=== PATIENT | female | born 2000 | race Caucasian/White ===

== ENCOUNTER 2020-12-24 13:18 | Inpatient (IN) | payer OTHER ==
[~2020-12-24] VITALS: Ht 170.2 cm; Wt 119.8 kg
[2020-12-24] MEDS ORDERED: DexAMETHasone SOD PHOS 10MG/1ML VIAL INJ IV ONE (13:30)
[2020-12-24] MEDS ORDERED: cefTRIAXone 1GM/50ML D5W 50 ML IV ONE (13:30)
[2020-12-24 14:02] LABS: Basophils # (auto) 0 10 ^3/uL (0-0.2); Basophils % (auto) 0.3 % (0.0-2.0); Eosinophils # (auto) 0 10 ^3/uL (0-0.8); Eosinophils % (auto) 0.1 % (0.0-7.0); Hematocrit 42.1 % (36.0-46.0); Hemoglobin 14.2 g/dL (12.2-16.2); Lymphocytes # (auto) 0.7 10 ^3/uL (0.4-5.4); Lymphocytes % (auto) 9.8 % (10.0-50.0); Mean Corpuscular Hemoglobin 29.4 pg (28.0-32.0); Mean Corpuscular Hgb Conc. 33.7 g/dL (32.0-36.0); Mean Corpuscular Volume 87.2 fL (80.0-100.0); Monocytes # (auto) 0.2 10 ^3/uL (0-1.3); Monocytes % (auto) 2.7 % (0.0-12.0); Neutrophils % (auto) 87.1 % (37.0-80.0); Red Blood Cells 4.83 10^6/uL (4.0-5.20); Red Cell Distribution Width 13.5 % (11.8-14.3); White Blood Cell 6.9 10^3/uL (4.4-10.8)
[2020-12-24 14:28] LABS: Albumin 2.5 g/dL (3.4-5.0); Anion Gap 6 (5-15); Blood Urea Nitrogen 9 mg/dL (7-18); Calcium 8.2 mg/dL (8.5-10.1); Carbon Dioxide 25 mmol/L (21-32); Chloride 110 mmol/L (98-107); Glucose 146 mg/dL (74-106); Potassium 4.3 mmol/L (3.5-5.1); Sodium 141 mmol/L (136-145)
[2020-12-24 14:35] LABS: Alanine Aminotransferase 119 U/L (13-56); Alkaline Phosphatase 59 U/L (45-117); Aspartate Aminotransferase 75 U/L (15-37); BUN/Creatinine Ratio 20.9; Bilirubin, Total 0.4 mg/dL (0.2-1.0); GFR African American 241 mL/min; GFR Non-African American 199 mL/min; Total Protein 7.1 g/dL (6.4-8.2)
[2020-12-24] MEDS ORDERED: IOHEXOL 350 MG/ML 100ML IJ ONE (14:37)
[2020-12-24] MEDS ORDERED: diphenhdrAMINE HCL 50 MG/1 ML VL IV ONE (15:00)
[2020-12-24 19:14] LABS: Urine Bacteria FEW /hpf (None Seen); Urine Blood 2+ /uL (Negative); Urine Mucus FEW (None Seen); Urine WBC 2 /hpf (0 - 5)
[2020-12-24 19:16] LABS: Urine Specific Gravity 1.051 (1.001-1.035)
[2020-12-24] MEDS ORDERED: hydrALAZINE HCL 20 MG/ML VL IV PRN (20:30)
[2020-12-24] MEDS ORDERED: ACETAMINOPHEN 500 MG TAB PO PRN ×2 (20:30)
[2020-12-24] MEDS ORDERED: NITROGLYCERIN 0.4 MG SL TAB SL PRN (20:30)
[2020-12-24] MEDS ORDERED: MORPHINE SULF INJ 2 MG/ML SYRINGE 1ML IV PRN (20:30)
[2020-12-24] MEDS ORDERED: DOCUSATE CALCIUM 240 MG CAP PO PRN (20:30)
[2020-12-24] MEDS ORDERED: DEXTROSE (50%) 50ML SYRG IV PRN (21:00)
[2020-12-24] MEDS: AZITHROMYCIN 500MG/ 250ML 250 ML IV SCH (21:46)
[2020-12-24] MEDS: ONDANSETRON HCL 4 MG/2 ML VIAL IV PRN (23:19)
[2020-12-24] MEDS: ENOXAPARIN SOD 40 MG/0.4 ML SYRINGE SC SCH (23:19)
[2020-12-24] MEDS: MORPHINE SULF INJ 2 MG/ML SYRINGE 1ML IV PRN (23:20)
[2020-12-25] VITALS (8 sets, daily range): BP systolic 114–153; BP diastolic 70–90
[2020-12-25] MEDS: InsuLIN REG 1unit/0.01ml Soln (100units/ml) SC SCH ×6 (04:00→21:17)
[2020-12-25] MEDS: ACCU-CHEK COMFORT CURVE STRIP VI SCH ×6 (04:15→21:13)
[2020-12-25] MEDS ORDERED: NORT25CA PO (04:35)
[2020-12-25] MEDS ORDERED: ALBUAER3 IN (04:35)
[2020-12-25] MEDS ORDERED: NAPR375T27 PO (04:35)
[2020-12-25] MEDS ORDERED: MULTCAP45 PO (04:35)
[2020-12-25] MEDS ORDERED: BIOT5TAB3 PO (04:35)
[2020-12-25] MEDS ORDERED: HYDR-4924 PO (04:35)
[2020-12-25] MEDS ORDERED: MELA3TAB27 PO (04:35)
[2020-12-25] MEDS ORDERED: PRE1T PO (04:35)
[2020-12-25] MEDS ORDERED: PROM25TA5 PO (04:35)
[2020-12-25] MEDS ORDERED: RIZA10TA50 OR (04:35)
[2020-12-25] MEDS ORDERED: CETI5SOL8 PO (04:35)
[2020-12-25] MEDS ORDERED: ASCO500T11 PO (04:35)
[2020-12-25] MEDS ORDERED: CHOL20007 PO (04:35)
[2020-12-25] MEDS ORDERED: FLUC100T34 PO (04:35)
[2020-12-25] MEDS: MORPHINE SULF INJ 2 MG/ML SYRINGE 1ML IV PRN ×3 (05:27→20:11)
[2020-12-25 05:45] LABS: Basophils # (auto) 0 10 ^3/uL (0-0.2); Basophils % (auto) 0.1 % (0.0-2.0); Eosinophils # (auto) 0 10 ^3/uL (0-0.8); Hematocrit 40.5 % (36.0-46.0); Hemoglobin 14.1 g/dL (12.2-16.2); Lymphocytes # (auto) 0.6 10 ^3/uL (0.4-5.4); Lymphocytes % (auto) 9.4 % (10.0-50.0); Mean Corpuscular Hemoglobin 30.2 pg (28.0-32.0); Mean Corpuscular Hgb Conc. 34.9 g/dL (32.0-36.0); Mean Corpuscular Volume 86.5 fL (80.0-100.0); Monocytes # (auto) 0.4 10 ^3/uL (0-1.3); Monocytes % (auto) 5.6 % (0.0-12.0); Neutrophils # (auto) 5.8 10 ^3/uL (1.6-8.6); Neutrophils % (auto) 84.9 % (37.0-80.0); Nucleated Red Blood Cells % 0.1 %; Red Blood Cells 4.68 10^6/uL (4.0-5.20); Red Cell Distribution Width 13.1 % (11.8-14.3); White Blood Cell 6.8 10^3/uL (4.4-10.8)
[2020-12-25 06:20] LABS: Albumin 2.7 g/dL (3.4-5.0); Calcium 8.5 mg/dL (8.5-10.1); Magnesium 2.2 mg/dL (1.6-2.6); Potassium 3.9 mmol/L (3.5-5.1)
[2020-12-25 06:27] LABS: BUN/Creatinine Ratio 14.5; Bilirubin, Total 0.3 mg/dL (0.2-1.0); CRP High Sensitivity 16.8 mg/dL (< 0.3); Total Protein 7.1 g/dL (6.4-8.2)
[2020-12-25 06:32] LABS: Thyroid Stimulating Hormone 0.04 uIU/mL (0.358-3.74)
[2020-12-25] MEDS: ASCORBIC ACID 1,000 MG TAB PO SCH (09:59)
[2020-12-25] MEDS: CHOLECALCIFEROL (VITD3) 2,000 UNIT CAP/TAB PO SCH (09:59)
[2020-12-25] MEDS: ZINC SULFATE 220mg CAP or TAB PO SCH (09:59)
[2020-12-25] MEDS: PANTOPRAZOLE 40 MG TAB PO SCH (09:59)
[2020-12-25] MEDS: DexAMETHasone SOD PHOS 10MG/1ML VIAL INJ IV SCH (09:59)
[2020-12-25] MEDS: ENOXAPARIN SOD 40 MG/0.4 ML SYRINGE SC SCH ×2 (09:59→21:13)
[2020-12-25] MEDS: AZITHROMYCIN 500MG/ 250ML 250 ML IV SCH (10:00)
[2020-12-25] MEDS: cefTRIAXone 1GM/50ML D5W 50 ML IV SCH (10:00)
[2020-12-25] MEDS: IPRATROPIUM BROMIDE HFA AER IN SCH ×3 (11:54→22:40)
[2020-12-25] MEDS: ALBUTEROL SULF HFA 90MCG INH 200DOSE IN PRN (11:54)
[2020-12-25] MEDS ORDERED: REMDESIVIR PER PHARMACY 0 ML IV SCH (12:30)
[2020-12-25] MEDS ORDERED: TOCILIZUMAB 400 MG in SODIUM CHL 0.9% 80 ML IV ONE (15:00)
[2020-12-25] MEDS: HYDROcodone-ACET 5/325MG TAB PO PRN ×2 (15:13→21:14)
[2020-12-25] MEDS: ONDANSETRON HCL 4 MG/2 ML VIAL IV PRN (15:13)
[2020-12-25] MEDS: guaiFENesin-DM 100/10mg/5ml SYR PO PRN ×2 (15:14→20:18)
[2020-12-25] MEDS: BUDESONIDE (INHALATION) 180 MCG IH IN SCH (22:40)
[2020-12-26] MEDS: guaiFENesin-DM 100/10mg/5ml SYR PO PRN ×5 (01:29→21:44)
[2020-12-26] MEDS: MORPHINE SULF INJ 2 MG/ML SYRINGE 1ML IV PRN (01:34)
[2020-12-26 05:30] VITALS: BP 109/58
[2020-12-26] MEDS: HYDROcodone-ACET 5/325MG TAB PO PRN ×3 (05:43→16:43)
[2020-12-26 06:14] LABS: Basophils # (auto) 0 10 ^3/uL (0-0.2); Basophils % (auto) 0.1 % (0.0-2.0); Eosinophils # (auto) 0 10 ^3/uL (0-0.8); Hematocrit 40.2 % (36.0-46.0); Hemoglobin 13.6 g/dL (12.2-16.2); Lymphocytes % (auto) 11.8 % (10.0-50.0); Mean Corpuscular Hemoglobin 29.8 pg (28.0-32.0); Mean Corpuscular Hgb Conc. 33.8 g/dL (32.0-36.0); Mean Corpuscular Volume 88.1 fL (80.0-100.0); Monocytes # (auto) 0.6 10 ^3/uL (0-1.3); Monocytes % (auto) 7.6 % (0.0-12.0); Neutrophils # (auto) 6.7 10 ^3/uL (1.6-8.6); Neutrophils % (auto) 80.5 % (37.0-80.0); Red Blood Cells 4.56 10^6/uL (4.0-5.20); Red Cell Distribution Width 13.4 % (11.8-14.3); White Blood Cell 8.3 10^3/uL (4.4-10.8)
[2020-12-26] MEDS: IPRATROPIUM BROMIDE HFA AER IN SCH ×4 (06:17→22:00)
[2020-12-26] MEDS: BUDESONIDE (INHALATION) 180 MCG IH IN SCH ×2 (06:17→22:00)
[2020-12-26] MEDS: ALBUTEROL SULF HFA 90MCG INH 200DOSE IN PRN ×3 (06:17→19:22)
[2020-12-26] MEDS: IVERMECTIN 3 MG TAB PO SCH (06:33)
[2020-12-26] MEDS: ACCU-CHEK COMFORT CURVE STRIP VI SCH ×4 (06:34→21:43)
[2020-12-26] MEDS: InsuLIN REG 1unit/0.01ml Soln (100units/ml) SC SCH ×4 (06:34→21:47)
[2020-12-26 06:35] LABS: Albumin 2.3 g/dL (3.4-5.0); Calcium 8.3 mg/dL (8.5-10.1)
[2020-12-26 06:39] LABS: Bilirubin, Total 0.5 mg/dL (0.2-1.0); Total Protein 6.7 g/dL (6.4-8.2)
[2020-12-26] MEDS: DexAMETHasone SOD PHOS 10MG/1ML VIAL INJ IV SCH (08:38)
[2020-12-26] MEDS: ASCORBIC ACID 1,000 MG TAB PO SCH (08:39)
[2020-12-26] MEDS: ZINC SULFATE 220mg CAP or TAB PO SCH (08:39)
[2020-12-26] MEDS: cefTRIAXone 1GM/50ML D5W 50 ML IV SCH (08:39)
[2020-12-26] MEDS: AZITHROMYCIN 500MG/ 250ML 250 ML IV SCH (08:39)
[2020-12-26] MEDS: ENOXAPARIN SOD 40 MG/0.4 ML SYRINGE SC SCH ×2 (08:39→21:43)
[2020-12-26] MEDS: CHOLECALCIFEROL (VITD3) 2,000 UNIT CAP/TAB PO SCH (08:39)
[2020-12-26 09:00] VITALS: BP 121/74
[2020-12-26] MEDS: PANTOPRAZOLE 40 MG TAB PO SCH (09:24)
[2020-12-26] MEDS ORDERED: TOCILIZUMAB 400 MG in SODIUM CHL 0.9% 80 ML IV ONE (10:00)
[2020-12-26 12:30] VITALS: BP 128/72
[2020-12-26 17:00] VITALS: BP 132/83
[2020-12-26 21:45] VITALS: BP 123/76
[2020-12-27] MEDS: HYDROcodone-ACET 5/325MG TAB PO PRN ×3 (00:05→21:58)
[2020-12-27 05:30] VITALS: BP 113/73
[2020-12-27] MEDS: ALBUTEROL SULF HFA 90MCG INH 200DOSE IN PRN ×2 (05:59→11:21)
[2020-12-27] MEDS: IPRATROPIUM BROMIDE HFA AER IN SCH ×3 (05:59→18:00)
[2020-12-27] MEDS: BUDESONIDE (INHALATION) 180 MCG IH IN SCH (05:59)
[2020-12-27] MEDS: IVERMECTIN 3 MG TAB PO SCH (06:43)
[2020-12-27] MEDS: InsuLIN REG 1unit/0.01ml Soln (100units/ml) SC SCH ×4 (06:43→21:59)
[2020-12-27] MEDS: ACCU-CHEK COMFORT CURVE STRIP VI SCH ×4 (06:43→21:58)
[2020-12-27] MEDS: guaiFENesin-DM 100/10mg/5ml SYR PO PRN ×3 (06:45→21:59)
[2020-12-27 07:05] LABS: Basophils # (auto) 0 10 ^3/uL (0-0.2); Basophils % (auto) 0.2 % (0.0-2.0); Eosinophils # (auto) 0 10 ^3/uL (0-0.8); Eosinophils % (auto) 0.1 % (0.0-7.0); Hematocrit 41.1 % (36.0-46.0); Lymphocytes # (auto) 1.5 10 ^3/uL (0.4-5.4); Lymphocytes % (auto) 19.3 % (10.0-50.0); Mean Corpuscular Hemoglobin 29.9 pg (28.0-32.0); Mean Corpuscular Volume 87.8 fL (80.0-100.0); Monocytes # (auto) 0.9 10 ^3/uL (0-1.3); Monocytes % (auto) 11.8 % (0.0-12.0); Neutrophils # (auto) 5.3 10 ^3/uL (1.6-8.6); Neutrophils % (auto) 68.6 % (37.0-80.0); Nucleated Red Blood Cells % 0.1 %; Red Blood Cells 4.68 10^6/uL (4.0-5.20); Red Cell Distribution Width 13.3 % (11.8-14.3); White Blood Cell 7.8 10^3/uL (4.4-10.8)
[2020-12-27 07:41] LABS: Albumin 2.4 g/dL (3.4-5.0); Calcium 8.4 mg/dL (8.5-10.1)
[2020-12-27 07:44] LABS: BUN/Creatinine Ratio 28.8; Bilirubin, Total 0.4 mg/dL (0.2-1.0); Total Protein 6.6 g/dL (6.4-8.2)
[2020-12-27 08:00] VITALS: BP 124/81
[2020-12-27] MEDS: cefTRIAXone 1GM/50ML D5W 50 ML IV SCH (08:16)
[2020-12-27] MEDS: AZITHROMYCIN 500MG/ 250ML 250 ML IV SCH (09:48)
[2020-12-27] MEDS: ZINC SULFATE 220mg CAP or TAB PO SCH (09:48)
[2020-12-27] MEDS: DexAMETHasone SOD PHOS 10MG/1ML VIAL INJ IV SCH (09:48)
[2020-12-27] MEDS: PANTOPRAZOLE 40 MG TAB PO SCH (09:48)
[2020-12-27] MEDS: CHOLECALCIFEROL (VITD3) 2,000 UNIT CAP/TAB PO SCH (09:49)
[2020-12-27] MEDS: ENOXAPARIN SOD 40 MG/0.4 ML SYRINGE SC SCH ×2 (09:49→21:58)
[2020-12-27] MEDS: ASCORBIC ACID 1,000 MG TAB PO SCH (09:49)
[2020-12-27 12:00] VITALS: BP 129/82
[2020-12-27 16:00] VITALS: BP 101/71
[2020-12-27 22:00] VITALS: BP 126/74
[2020-12-28] MEDS: IPRATROPIUM BROMIDE HFA AER IN SCH ×5 (00:50→23:07)
[2020-12-28] MEDS: BUDESONIDE (INHALATION) 180 MCG IH IN SCH ×3 (00:50→23:08)
[2020-12-28] MEDS: ALBUTEROL SULF HFA 90MCG INH 200DOSE IN PRN ×4 (00:50→23:08)
[2020-12-28] MEDS: guaiFENesin-DM 100/10mg/5ml SYR PO PRN ×4 (02:37→21:33)
[2020-12-28 05:00] VITALS: BP 126/56
[2020-12-28] MEDS: ACCU-CHEK COMFORT CURVE STRIP VI SCH ×2 (06:17→11:35)
[2020-12-28] MEDS: InsuLIN REG 1unit/0.01ml Soln (100units/ml) SC SCH ×2 (06:18→11:30)
[2020-12-28 06:20] LABS: Hematocrit 41.5 % (36.0-46.0); Hemoglobin 13.8 g/dL (12.2-16.2); Mean Corpuscular Hemoglobin 29.5 pg (28.0-32.0); Mean Corpuscular Hgb Conc. 33.3 g/dL (32.0-36.0); Mean Corpuscular Volume 88.6 fL (80.0-100.0); Red Blood Cells 4.68 10^6/uL (4.0-5.20); Red Cell Distribution Width 13.3 % (11.8-14.3); White Blood Cell 7.5 10^3/uL (4.4-10.8)
[2020-12-28 06:23] LABS: Band Neutrophils % (manual) 0; Basophils % (manual) 0 (0.0-2.0); Blast Cells 0; Eosinophils % (manual) 0 (0-7); Metamyelocytes % 0; Myelocytes % 0; Promyelocytes % 0; Reactive Lymphocytes 0
[2020-12-28] MEDS: IVERMECTIN 3 MG TAB PO SCH (06:35)
[2020-12-28 06:36] LABS: Albumin 2.6 g/dL (3.4-5.0); Calcium 8.4 mg/dL (8.5-10.1); Potassium 3.9 mmol/L (3.5-5.1)
[2020-12-28 06:41] LABS: BUN/Creatinine Ratio 27.8; Bilirubin, Total 0.4 mg/dL (0.2-1.0); Total Protein 6.7 g/dL (6.4-8.2)
[2020-12-28 07:18] LABS: Lymphocytes % (manual) 16 (10.0-50.0); Monocytes % (manual) 10 (0-12)
[2020-12-28] MEDS: cefTRIAXone 1GM/50ML D5W 50 ML IV SCH (07:50)
[2020-12-28 08:00] VITALS: BP 129/73
[2020-12-28] MEDS: ASCORBIC ACID 1,000 MG TAB PO SCH (09:36)
[2020-12-28] MEDS: ENOXAPARIN SOD 40 MG/0.4 ML SYRINGE SC SCH ×2 (09:36→21:33)
[2020-12-28] MEDS: CHOLECALCIFEROL (VITD3) 2,000 UNIT CAP/TAB PO SCH (09:36)
[2020-12-28] MEDS: DexAMETHasone SOD PHOS 10MG/1ML VIAL INJ IV SCH (09:36)
[2020-12-28] MEDS: ZINC SULFATE 220mg CAP or TAB PO SCH (09:36)
[2020-12-28] MEDS: PANTOPRAZOLE 40 MG TAB PO SCH (09:36)
[2020-12-28] MEDS: AZITHROMYCIN 500MG/ 250ML 250 ML IV SCH (09:36)
[2020-12-28 12:00] VITALS: BP 129/61
[2020-12-28 13:38] VITALS: BP 129/61
[2020-12-28] MEDS ORDERED: REMDESIVIR 200 MG in NS 210ml LOADING DOSE ADULT IV ONE (15:00)
[2020-12-28 16:00] VITALS: BP 107/60
[2020-12-28] MEDS: ONDANSETRON HCL 4 MG/2 ML VIAL IV PRN (16:00)
[2020-12-28] MEDS: HYDROcodone-ACET 5/325MG TAB PO PRN (21:33)
[2020-12-28 22:00] VITALS: BP 106/63
[2020-12-29 05:00] VITALS: BP 99/53
[2020-12-29 06:03] VITALS: BP 103/60
[2020-12-29] MEDS: ONDANSETRON HCL 4 MG/2 ML VIAL IV PRN ×2 (06:08→12:00)
[2020-12-29] MEDS: guaiFENesin-DM 100/10mg/5ml SYR PO PRN ×3 (06:08→19:56)
[2020-12-29] MEDS: IVERMECTIN 3 MG TAB PO SCH (06:08)
[2020-12-29] MEDS: IPRATROPIUM BROMIDE HFA AER IN SCH ×4 (06:15→23:36)
[2020-12-29] MEDS: ALBUTEROL SULF HFA 90MCG INH 200DOSE IN PRN ×3 (06:15→23:37)
[2020-12-29] MEDS: BUDESONIDE (INHALATION) 180 MCG IH IN SCH ×2 (06:15→23:37)
[2020-12-29 09:00] VITALS: BP 101/51
[2020-12-29] MEDS: DexAMETHasone SOD PHOS 10MG/1ML VIAL INJ IV SCH (10:00)
[2020-12-29] MEDS: PANTOPRAZOLE 40 MG TAB PO SCH (10:00)
[2020-12-29] MEDS: ZINC SULFATE 220mg CAP or TAB PO SCH (10:00)
[2020-12-29] MEDS: ASCORBIC ACID 1,000 MG TAB PO SCH (10:00)
[2020-12-29] MEDS: CHOLECALCIFEROL (VITD3) 2,000 UNIT CAP/TAB PO SCH (10:00)
[2020-12-29] MEDS: ENOXAPARIN SOD 40 MG/0.4 ML SYRINGE SC SCH ×2 (10:00→21:58)
[2020-12-29 10:09] LABS: Potassium 3.5 mmol/L (3.5-5.1)
[2020-12-29 10:17] LABS: Bilirubin, Total 0.4 mg/dL (0.2-1.0); Calcium 8.7 mg/dL (8.5-10.1); Total Protein 7.3 g/dL (6.4-8.2)
[2020-12-29 13:00] VITALS: BP 106/67
[2020-12-29] MEDS: REMDESIVIR 100mg 100 MG in SODIUM CHL 0.9% 230 ML IV SCH (14:50)
[2020-12-29] MEDS ORDERED: ONDANSETRON HCL 4 MG/2 ML VIAL IV PRN (15:30)
[2020-12-29] MEDS: LORazepam 0.5 MG TAB PO PRN ×2 (16:16→21:59)
[2020-12-29 17:00] VITALS: BP 93/61
[2020-12-29] MEDS: HYDROcodone-ACET 5/325MG TAB PO PRN (21:59)
[2020-12-29 22:00] VITALS: BP 126/78
[2020-12-30 05:25] VITALS: BP 100/66
[2020-12-30] MEDS: IVERMECTIN 3 MG TAB PO SCH (06:43)
[2020-12-30 07:22] LABS: Albumin 2.9 g/dL (3.4-5.0); Potassium 3.9 mmol/L (3.5-5.1)
[2020-12-30 07:27] LABS: Bilirubin, Total 0.5 mg/dL (0.2-1.0); Calcium 8.6 mg/dL (8.5-10.1); Total Protein 6.6 g/dL (6.4-8.2)
[2020-12-30] MEDS: BUDESONIDE (INHALATION) 180 MCG IH IN SCH ×2 (08:17→22:00)
[2020-12-30] MEDS: ALBUTEROL SULF HFA 90MCG INH 200DOSE IN PRN ×2 (08:17→22:41)
[2020-12-30] MEDS: IPRATROPIUM BROMIDE HFA AER IN SCH ×3 (08:17→22:00)
[2020-12-30 09:00] VITALS: BP 104/55
[2020-12-30] MEDS ORDERED: REMDESIVIR PER PHARMACY 0 ML IV SCH ×2 (09:15)
[2020-12-30] MEDS: PANTOPRAZOLE 40 MG TAB PO SCH (09:44)
[2020-12-30] MEDS: ASCORBIC ACID 1,000 MG TAB PO SCH (09:44)
[2020-12-30] MEDS: DexAMETHasone SOD PHOS 10MG/1ML VIAL INJ IV SCH (09:44)
[2020-12-30] MEDS: ENOXAPARIN SOD 40 MG/0.4 ML SYRINGE SC SCH ×2 (09:44→21:30)
[2020-12-30] MEDS: CHOLECALCIFEROL (VITD3) 2,000 UNIT CAP/TAB PO SCH (09:44)
[2020-12-30] MEDS: ZINC SULFATE 220mg CAP or TAB PO SCH (09:44)
[2020-12-30 13:00] VITALS: BP 104/57
[2020-12-30] MEDS: guaiFENesin-DM 100/10mg/5ml SYR PO PRN ×2 (14:07→19:59)
[2020-12-30] MEDS: REMDESIVIR 100mg 100 MG in SODIUM CHL 0.9% 230 ML IV SCH (15:00)
[2020-12-30 17:00] VITALS: BP 107/56
[2020-12-30 22:13] VITALS: BP 103/54
[2020-12-31 05:00] VITALS: BP 94/52
[2020-12-31 06:46] LABS: Potassium 3.5 mmol/L (3.5-5.1)
[2020-12-31 06:52] LABS: Albumin 2.8 g/dL (3.4-5.0); BUN/Creatinine Ratio 31.5; Bilirubin, Total 0.4 mg/dL (0.2-1.0); Total Protein 6.4 g/dL (6.4-8.2)
[2020-12-31] MEDS: BUDESONIDE (INHALATION) 180 MCG IH IN SCH ×2 (07:17→23:06)
[2020-12-31] MEDS: IPRATROPIUM BROMIDE HFA AER IN SCH ×4 (07:18→23:06)
[2020-12-31 09:00] VITALS: BP 103/56
[2020-12-31] MEDS: PANTOPRAZOLE 40 MG TAB PO SCH (09:57)
[2020-12-31] MEDS: ASCORBIC ACID 1,000 MG TAB PO SCH (09:57)
[2020-12-31] MEDS: ZINC SULFATE 220mg CAP or TAB PO SCH (09:57)
[2020-12-31] MEDS: DexAMETHasone SOD PHOS 10MG/1ML VIAL INJ IV SCH (09:57)
[2020-12-31] MEDS: CHOLECALCIFEROL (VITD3) 2,000 UNIT CAP/TAB PO SCH (09:58)
[2020-12-31] MEDS: ENOXAPARIN SOD 40 MG/0.4 ML SYRINGE SC SCH ×2 (09:59→21:30)
[2020-12-31 10:45] VITALS: BP 103/56
[2020-12-31 12:22] VITALS: BP 100/56
[2020-12-31] MEDS: REMDESIVIR 100mg 100 MG in SODIUM CHL 0.9% 230 ML IV SCH (15:40)
[2020-12-31 16:54] VITALS: BP 100/57
[2020-12-31 22:09] VITALS: BP 123/65
[2020-12-31] MEDS: ALBUTEROL SULF HFA 90MCG INH 200DOSE IN PRN (23:06)
[2021-01-01] VITALS (7 sets, daily range): BP systolic 90–140; BP diastolic 48–83
[2021-01-01] MEDS: guaiFENesin-DM 100/10mg/5ml SYR PO PRN (06:30)
[2021-01-01 06:56] LABS: Albumin 2.7 g/dL (3.4-5.0)
[2021-01-01 06:59] LABS: BUN/Creatinine Ratio 27.6; Bilirubin, Total 0.3 mg/dL (0.2-1.0); Calcium 8.3 mg/dL (8.5-10.1); Total Protein 6.1 g/dL (6.4-8.2)
[2021-01-01] MEDS: IPRATROPIUM BROMIDE HFA AER IN SCH (08:00)
[2021-01-01] MEDS: BUDESONIDE (INHALATION) 180 MCG IH IN SCH (08:00)
[2021-01-01] MEDS: ALBUTEROL SULF HFA 90MCG INH 200DOSE IN PRN (08:00)
[2021-01-01] MEDS: DexAMETHasone SOD PHOS 10MG/1ML VIAL INJ IV SCH (09:58)
[2021-01-01] MEDS: ENOXAPARIN SOD 40 MG/0.4 ML SYRINGE SC SCH (09:59)
[2021-01-01] MEDS: ASCORBIC ACID 1,000 MG TAB PO SCH (09:59)
[2021-01-01] MEDS: PANTOPRAZOLE 40 MG TAB PO SCH (09:59)
[2021-01-01] MEDS: CHOLECALCIFEROL (VITD3) 2,000 UNIT CAP/TAB PO SCH (09:59)
[2021-01-01] MEDS: ZINC SULFATE 220mg CAP or TAB PO SCH (09:59)
[2021-01-01] MEDS: REMDESIVIR 100mg 100 MG in SODIUM CHL 0.9% 230 ML IV SCH (13:57)
== END 2021-01-01 16:00 | disposition home or self-care (01) | DRG 177 ==
LOC: EDBD 13:18 → ER 13:18 → TELE 20:17 → TELE-EAST 23:56
PROVIDERS: ADMIT Family Medicine; ATTEND Internal Medicine Pulmonary Disease
PROC: XW033E5 Introduction of Remdesivir Anti-infective into Peripheral Vein, Percutaneous Approach, New Technology Group 5 (ICD-10-PCS; principal; 2020-12-25)
PROC: XW033H5 Introduction of Tocilizumab into Peripheral Vein, Percutaneous Approach, New Technology Group 5 (ICD-10-PCS; 2020-12-25)
DX: U07.1 COVID-19 (principal); J12.82 Pneumonia due to coronavirus disease 2019; J96.01 Acute respiratory failure with hypoxia; J45.901 Unspecified asthma with (acute) exacerbation; D89.839 Cytokine release syndrome, grade unspecified
CPT/HCPCS: 36415; 71275; 80053; 81001; 82306; 82728; 82962; 83036; 83605; 83615; 83735; 84443; 84484; 84702; 85007; 85025; 85027; 85379; 86141; 87040; 87426; 93005; 94640; 96365; 96375; 99291; G0378; J0696; J1100; J1815; J2405